=== PATIENT | female | born 2000 | race Caucasian/White ===

== ENCOUNTER 2019-07-11 21:59 | Emergency (ER) | payer SELFPAY ==
--- NOTE | 2019-07-11 22:34 | Event Note ---
ED Screening Note Date of service: 07/11/19 Time: 22:32 ED Screening Note: 18 y o present with left hand pain x injury to hand today This initial assessment/diagnostic orders/clinical plan/treatment(s) is/are subject to change based on patients health status, clinical progression and re-assessment by fellow clinical providers in the ED. Further treatment and workup at subsequent clinical providers discretion. Patient/guardian urged not to elope from the ED as their condition may be serious if not clinically assessed and managed. Initial orders include: xr
[2019-07-11 22:36] VITALS: BP 145/91
--- NOTE | 2019-07-12 00:48 | XRay Report ---
LEFT HAND 2 VIEWS. INDICATION / CLINICAL INFORMATION: hand pain COMPARISON: None available. FINDINGS: BONES / JOINT(S): No acute fracture or subluxation. No significant arthritis. SOFT TISSUES: No significant abnormality. ADDITIONAL FINDINGS: None. Signer Name: Marcelo Maier MD Signed: 07/12/2019 12:44 AM Workstation Name: [id number]
--- NOTE | 2019-07-12 01:02 | Emergency Department Report ---
ED Upper Extremity Inj HPI - General Chief Complaint: Extremity Injury, Upper Stated Complaint: LEFT HAND PAIN Time Seen by Provider: 07/11/19 22:31 Source: patient Mode of arrival: Ambulatory Limitations: No Limitations - History of Present Illness Initial Comments: 18 year old female presents to the emergency room for left hand pain with swelling status post door slammed on her hand at work approximately 12 PM today. Patient reports the pain as a 6 out of 10. She reports she does have a past medical history of hypertension but does not take any pain medication. Patient denies any known drug allergies. Complaint: Injury to:: left Time: 12:00 Other Extremity Injury: Hand: Left Other Injuries: none Severity scale (0 -10): 6 Improves With: movement Worsens With: movement of extremity Context: direct blow Associated Symptoms: denies other symptoms Treatments Prior to Arrival: cold therapy - Related Data Previous Rx's Medication Instructions Recorded Last Taken Type Ibuprofen [Motrin 600 MG tab] 600 mg PO Q8H PRN #21 tablet 07/12/19 Unknown Rx Allergies Allergy/AdvReac Type Severity Reaction Status Date / Time No Known Allergies Allergy Unverified 07/12/19 01:04 ED Review of Systems ROS: Stated complaint: LEFT HAND PAIN Other details as noted in HPI ED Past Medical Hx - Past Medical History Previous Medical History?: Yes Hx Hypertension: Yes Additional medical history: Obesity - Surgical History Past Surgical History?: No - Social History Smoking Status: Current Every Day Smoker Substance Use Type: None - Medications Home Medications: Home Medications Medication Instructions Recorded Confirmed Last Taken Type Ibuprofen [Motrin 600 MG tab] 600 mg PO Q8H PRN #21 tablet 07/12/19 Unknown Rx ED Physical Exam - General Limitations: No Limitations ED Course Vital Signs 07/11/19 22:31 Temperature 97.7 F Pulse Rate 78 Respiratory 18 Rate Blood Pressure 145/91 O2 Sat by Pulse 99 Oximetry ED Medical Decision Making - Radiology Data Radiology results: report reviewed Patient: YO FLORENCE MR#: [id number] : 2000 Acct:[id number] Age/Sex: 18 / F ADM Date: 07/11/19 Loc: ED Attending Dr: Ordering Physician: RUPERTO COREY Date of Service: 07/11/19 Procedure(s): XR hand 2V LT Accession Number(s): [id number] cc: RUPERTO COREY Fluoro Time In Minutes: LEFT HAND 2 VIEWS. INDICATION / CLINICAL INFORMATION: hand pain COMPARISON: None available. FINDINGS: BONES / JOINT(S): No acute fracture or subluxation. No significant arthritis. SOFT TISSUES: No significant abnormality. ADDITIONAL FINDINGS: None. Signer Name: Marcelo Maier MD Signed: 07/12/2019 12:44 AM Workstation Name: [email or web address] Transcribed By: ES Dictated By: Marcelo Maier MD Electronically Authenticated By: Marcelo Maier MD Signed Date/Time: 07/[birth year]/1943 DD/ TD/TT: - Medical Decision Making 18 year old female presents to the emergency room for left hand pain with swelling status post door slammed on her hand at work approximately 12 PM today. Patient reports the pain as a 6 out of 10. She reports she does have a past medical history of hypertension but does not take any pain medication. Patient denies any known drug allergies. X-ray was negative for any fractures. Patient did take ibuprofen as needed for pain management. Referral to Dr. Burden if she feels like she needs to follow up with someone. Critical care attestation.: If time is entered above; I have spent that time in minutes in the direct care of this critically ill patient, excluding procedure time. ED Disposition Clinical Impression: Contusion of hand, left Disposition: DC-01 TO HOME OR SELFCARE Is pt being admited?: No Does the pt Need Aspirin: No Condition: Stable Instructions: Hand Sprain (ED) Additional Instructions: X-rays were negative for any fractures or dislocations of her hand. Please take ibuprofen as needed for pain management. Please continue with ice therapy for the next 12 hours. Prescriptions: Ibuprofen [Motrin 600 MG tab] 600 mg PO Q8H PRN #21 tablet PRN Reason: Pain , Severe (7-10) Referrals: PRIMARY CARE, [Primary Care Provider] - 3-5 Days FARRUKH BURDEN MD [Staff Physician] - 3-5 Days Forms: Work/School Release Form(ED)
[2019-07-12] MEDS: IBUPROFEN PO ONE (01:14)
== END 2019-07-12 01:30 | disposition home or self-care (01) ==
LOC: ED 21:59
DX: S60.222A Contusion of left hand, initial encounter (principal); I10 Essential (primary) hypertension; F17.200 Nicotine dependence, unspecified, uncomplicated; Z79.899 Other long term (current) drug therapy; W23.0XXA Caught, crushed, jammed, or pinched between moving objects, initial encounter; Y93.89 Activity, other specified; Y92.89 Other specified places as the place of occurrence of the external cause; Y99.0 Civilian activity done for income or pay
CPT/HCPCS: 99283